=== PATIENT | male | born 2000 | race African-American/Black ===

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

== ENCOUNTER 2021-02-10 18:50 | Emergency (ER) | payer OTHER ==
[~2021-02-10] VITALS: Ht 175.3 cm; Wt 102.1 kg
[2021-02-10 19:29] VITALS: BP 173/93
== END 2021-02-10 21:10 | disposition home or self-care (01) ==
LOC: ER 18:50
DX: U07.1 COVID-19 (principal); M25.561 Pain in right knee; R22.41 Localized swelling, mass and lump, right lower limb; G43.909 Migraine, unspecified, not intractable, without status migrainosus; J45.909 Unspecified asthma, uncomplicated; Z88.8 Allergy status to other drugs, medicaments and biological substances; X58.XXXA Exposure to other specified factors, initial encounter; Y93.89 Activity, other specified; Y92.89 Other specified places as the place of occurrence of the external cause; Y99.8 Other external cause status